=== PATIENT | female | born 1995 | race Hispanic/Latino ===

== ENCOUNTER 2020-02-29 07:18 | Emergency (ER) | payer MEDICAID ==
[2020-02-29 07:52] VITALS: BP 129/85
--- NOTE | 2020-02-29 10:55 | Emergency Department Report ---
ED General Adult HPI - General Chief complaint: Dental/Oral Stated complaint: TOOTH PAIN Time Seen by Provider: 02/29/20 10:22 Source: patient Mode of arrival: Ambulatory Limitations: No Limitations - History of Present Illness Initial comments: 24-year-old female patient presents with complaints of right lower dental pain and facial swelling x yesterday. She states history of recurrent dental pain in the same area, however denies any history of dental abscess. She also denies any fever/chills/sweats or difficulty swallowing. Patient states she is not currently following with a dental specialist. She rates her current pain as a 8/10 in severity and states it worsens with eating. -: Sudden Quality: aching - Related Data Previous Rx's Medication Instructions Recorded Last Taken Type Acetaminophen/Codeine [Tylenol 1 tab PO Q6H PRN #10 tab 02/29/20 Unknown Rx /Codeine # 3 tab] Clindamycin [Clindamycin CAP] 300 mg PO Q6H 10 Days #40 capsule 02/29/20 Unknown Rx Allergies Allergy/AdvReac Type Severity Reaction Status Date / Time adalimumab Allergy Unknown Verified 02/29/20 07:49 adhesive tape Allergy Unknown Verified 02/29/20 07:49 aspirin Allergy Unknown Verified 02/29/20 07:49 chlorhexidine Allergy Unknown Verified 02/29/20 07:49 ciprofloxacin Allergy Unknown Verified 02/29/20 07:49 clonidine Allergy Unknown Verified 02/29/20 07:49 infliximab Allergy Unknown Verified 02/29/20 07:49 iodine Allergy Unknown Verified 02/29/20 07:49 ketorolac Allergy Vomiting Verified 02/29/20 07:49 metronidazole Allergy Unknown Verified 02/29/20 07:49 prednisone Allergy Unknown Verified 02/29/20 07:49 vancomycin Allergy Unknown Verified 02/29/20 07:49 ED Review of Systems ROS: Stated complaint: TOOTH PAIN Other details as noted in HPI Constitutional: denies: chills, fever ENT: dental pain. denies: throat pain Respiratory: denies: cough, shortness of breath Gastrointestinal: denies: nausea, vomiting Skin: denies: change in color Neurological: denies: headache ED Past Medical Hx - Past Medical History Previous Medical History?: No - Surgical History Past Surgical History?: No - Social History Smoking Status: Never Smoker - Medications Home Medications: Home Medications Medication Instructions Recorded Confirmed Last Taken Type Acetaminophen/Codeine [Tylenol 1 tab PO Q6H PRN #10 tab 02/29/20 Unknown Rx /Codeine # 3 tab] Clindamycin [Clindamycin CAP] 300 mg PO Q6H 10 Days #40 capsule 02/29/20 Unknown Rx ED Physical Exam - General Limitations: No Limitations General appearance: alert, in no apparent distress - Head Head exam: Present: atraumatic, normocephalic - Eye Eye exam: Present: normal appearance. Absent: scleral icterus - Expanded ENT Exam Expanded Mouth exam: Present: tongue normal. Absent: drooling, trismus, muffled voice 1 - Dental Tenderness (Dental carry noted with surrounding erythema of the gums and swelling to the right lower face without overlying erythema) - Neck Neck exam: Present: normal inspection, full ROM. Absent: lymphadenopathy - Respiratory Respiratory exam: Absent: respiratory distress - Cardiovascular Cardiovascular Exam: Present: regular rate - Neurological Exam Neurological exam: Present: alert, oriented X3 - Psychiatric Psychiatric exam: Present: normal affect, normal mood - Skin Skin exam: Present: warm, dry, intact, normal color. Absent: rash ED Course Vital Signs 02/29/20 07:44 Temperature 98.7 F Pulse Rate 83 Respiratory 16 Rate Blood Pressure 129/85 O2 Sat by Pulse 99 Oximetry ED Medical Decision Making - Medical Decision Making 24-year-old female patient presents with complaints of right lower dental pain and facial swelling x yesterday. She states history of recurrent dental pain in the same area, however denies any history of dental abscess. She also denies any fever/chills/sweats or difficulty swallowing. Patient states she is not currently following with a dental specialist. She rates her current pain as a 8/10 in severity and states it worsens with eating. Moderate swelling to the right lower face with tenderness and no overlying cellulitic changes noted with right lower dental tenderness to palpation noted. No obvious dental abscess noted. Patient is afebrile and nontachycardic. Will treat with clindamycin. Recommend patient follows up with a dental specialist- dental specialist list provided. Strict return precautions were discussed in detail with patient who verbalizes understanding. Critical care attestation.: If time is entered above; I have spent that time in minutes in the direct care of this critically ill patient, excluding procedure time. ED Disposition Clinical Impression: Dental infection Disposition: DC- TO HOME OR SELFCARE Is pt being admited?: No Condition: Stable Instructions: Dental Abscess (ED) Additional Instructions: Please follow up with a dental specialist from the list provided within 24 hours Prescriptions: Clindamycin [Clindamycin CAP] 300 mg PO Q6H 10 Days #40 capsule Acetaminophen/Codeine [Tylenol /Codeine # 3 tab] 1 tab PO Q6H PRN #10 tab PRN Reason: Pain , Severe (7-10)
== END 2020-02-29 11:21 | disposition home or self-care (01) ==
LOC: ED 07:18
DX: K04.7 Periapical abscess without sinus (principal); Z79.899 Other long term (current) drug therapy; Z79.82 Long term (current) use of aspirin
CPT/HCPCS: 99281